=== PATIENT | male | born 1990 | race Hispanic/Latino ===

== ENCOUNTER 2018-12-21 22:30 | Emergency (ER) | payer BC ==
[~2018-12-21] VITALS: Ht 177.8 cm; Wt 104.3 kg
--- NOTE | 2018-12-21 22:56 | NUR ---
[facility] NOTIFIED
[2018-12-21] MEDS ORDERED: ONDANSETRON HCL INJ 2MG/ML 2ML 2 MG/ML VIAL IV STA (23:02)
[2018-12-21] MEDS ORDERED: MORPHINE SULFATE 2 MG/ML SYR 1ML IV STA (23:02)
--- NOTE | 2018-12-21 23:07 | NUR ---
[facility] HAS NO TRUCKS AVAILABLE PER SARAH WITH [facility], [facility] NOTIFIED [facility] A RTA OF 25 MINUTES.
[2018-12-21] MEDS ORDERED: CEFTRIAXONE SOD 1 GM/NS 50 ML 50 ML IV ONE (23:15)
[2018-12-21] MEDS ORDERED: MORPHINE SULFATE INJ 4 MG/ML INJ 1ML ONE (23:39)
[2018-12-21] MEDS ORDERED: ONDANSETRON HCL INJ 2MG/ML 2ML 2 MG/ML VIAL ONE (23:39)
[2018-12-21 23:55] VITALS: BP 133/91
--- NOTE | 2018-12-22 00:01 | NUR ---
REPORT GIVEN TO [facility], PT STABLE AT THE TME OF TRANSFER.
--- NOTE | 2018-12-22 00:01 | NUR ---
PT REFUSED ALL PAIN MEDS.
== END 2018-12-22 00:07 | disposition other institution (70) ==
LOC: FSED 22:30
DX: H57.11 Ocular pain, right eye (principal); S05.11XA Contusion of eyeball and orbital tissues, right eye, initial encounter; H43.11 Vitreous hemorrhage, right eye; W21.89XA Striking against or struck by other sports equipment, initial encounter; Y93.B9 Activity, other involving muscle strengthening exercises; Y92.39 Other specified sports and athletic area as the place of occurrence of the external cause
CPT/HCPCS: 99284; J2270; J2405